=== PATIENT | female | born 1955 | race Caucasian/White ===

== ENCOUNTER 2016-05-05 07:44 | Day surgery (SDC) | payer OTHER ==
[2016-04-28 12:37] VITALS: BMI 18.2
[2016-05-05] MEDS ORDERED: PROPOFOL 20 ML ONE (08:42)
[2016-05-05] MEDS ORDERED: ROPIVACAINE HCL 0.5% 30ML VIAL ONE (09:17)
[2016-05-05] MEDS ORDERED: MIDAZOLAM HCL 2 MG/2 ML SINGLE DOSE VIAL ONE (09:17)
[2016-05-05] MEDS ORDERED: DEXAMETHASONE SOD PHOSPHATE/PF 10 MG/ML SDV ONE (09:17)
[2016-05-05] MEDS ORDERED: BUPIVACAINE HCL/EPINEPHRINE/PF 30 ML VIAL IJ ONE (09:46)
--- NOTE | 2016-05-05 09:49 | HP ---
Admitting History and Physical - Admission History of Present Illness: The patient is a 61 yo female with a history of breast cancer, s/p left lumpectomy with sentinel node biopsy. She comes to the hospital today for left shoulder arthroscopy. She gives no definite date or specific memory of an injury but she has had pain to her left shoulder for >1 year. No numbness or tingling to this upper ext. She has tenderness with abduction of her arm. No CP , fevers, SOB or dysuria. History Source: Patient Limitations to Obtaining History: No Limitations - Past Medical History Cardiovascular: No: Deep Vein Thrombosis, HTN Pulmonary: Yes: Asthma, Pneumonia (last episode in november 2015) Gastrointestinal: No: Cancer, Gastritis, GERD Renal/: No: Renal Failure, Hematuria Heme/Onc: No: Bleeding Disorder Additional Past Medical History: venous stasis b/l - Past Surgical History Past Surgical History: Yes: Breast Biopsy (left breat lumpectomy with sentinel node biopsy for cancer, elective b/l ooporectomy) Additional Past Surgical History: laparoscopic b/l ooporectomy - Smoking History Smoking history: Never smoked Have you smoked in the past 12 months: No - Alcohol/Substance Use Hx Alcohol Use: No Home Medications - Allergies Allergies/Adverse Reactions: Allergies Allergy/AdvReac Type Severity Reaction Status Date / Time doxycycline Allergy Rash Verified 05/05/16 08:30 sulfamethoxazole Allergy Rash Verified 05/05/16 08:30 [From Bactrim] trimethoprim [From Bactrim] Allergy Rash Verified 05/05/16 08:30 - Home Medications Home Medications: Ambulatory Orders NK [No Known Home Medication] 04/28/16 Review of Systems - Review of Systems Constitutional: denies: Chills, Fever Neck: denies: Decreased ROM, Pain on Movement Cardiovascular: denies: Chest Pain, Edema, Palpitations Respiratory: denies: Cough, SOB Gastrointestinal: denies: Abdominal Pain, Nausea Genitourinary: denies: Burning, Dysuria, Hematuria Musculoskeletal: reports: Extremity Pain (left hsoulder). denies: Decreased ROM Neurological: denies: Headache, Numbness, Parasthesia Hematology/Lymphatic: denies: Easily Bruised, Excessive Bleeding Physical Examination Vital Signs: Vital Signs Temperature 97.7 F 05/05/16 08:20 Pulse Rate 59 L 05/05/16 08:20 Respiratory Rate 16 05/05/16 08:20 Blood Pressure 107/60 05/05/16 08:20 O2 Sat by Pulse Oximetry (%) 100 05/05/16 08:29 Constitutional: Yes: Well Nourished, Calm Eyes: Yes: WNL, Conjunctiva Clear HENT: Yes: WNL, Atraumatic, Normocephalic Neck: Yes: WNL, Supple, Trachea Midline Cardiovascular: Yes: WNL, Regular Rate and Rhythm Respiratory: Yes: WNL, Regular, CTA Bilaterally Gastrointestinal: Yes: WNL, Normal Bowel Sounds, Soft Extremities: No: Calf Tenderness, Deformity Edema: No Peripheral Pulses WNL: Yes Peripheral Pulses: Left Doralis Pedis: 2+, Right Dorsalis Pedis: 2+, Left Femoral: 2+, Right Femoral: 2+ Integumentary: Yes: Venous Stasis Changes (b/l) Neurological: Yes: WNL, Alert, Oriented ...Motor Strength: WNL, LUE, LLE, RUE, RLE Psychiatric: Yes: WNL, Alert, Oriented Assessment/Plan A/P: 61 yo old female with partial rotator cuff tear plan for left shoulder arthroscopy today with repair of partial tear DVT ppx with SCD/early ambulation IV abx at [facility]
[2016-05-05] MEDS ORDERED: oxyCODONE HCL 10 MG SUSTAINED ACTING TABLET PO ONE (11:27)
[2016-05-05] MEDS ORDERED: oxyCODONE HCL 5 MG TABLET PO PRN (11:27)
--- NOTE | 2016-05-05 11:31 | OP ---
Operative Note - Note: Operative Date: 05/05/16 Pre-Operative Diagnosis: LEFT SHOULDER RCT/PARTIAL, BURSITIS/TENDINOSIS Operation: RSA DEBRIDEMENT, DECOMPRESSION, REPAIR WITH BIOINDUCTIVE PATCH Post-Operative Diagnosis: Same as Pre-op Surgeon: Cisco Cannon Anesthesia: General Operative Report Dictated: Yes
--- NOTE | 2016-05-05 11:36 | DS ---
Physical Examination Vital Signs: Vital Signs Temperature 97.7 F 05/05/16 08:20 Pulse Rate 59 L 05/05/16 08:20 Respiratory Rate 16 05/05/16 08:20 Blood Pressure 107/60 05/05/16 08:20 O2 Sat by Pulse Oximetry (%) 100 05/05/16 08:29 Discharge Summary Reason For Visit: PARTIAL ROTATOR CUFF TEAR LEFT SHOULDER Condition: Good - Instructions Diet, Activity, Other Instructions: Post Operative Instructions: Shoulder Arthroscopy Dr Cisco Cannon YOUR REGULAR PHARAMCY DID NOT HAVE PAIN MEDICATIONS: WE CALLED YOUR MEDICATION ORDER INTO: [address] 1. Pain following a Shoulder Arthroscopy is variable and can be significant. Some patients will have more pain than others. You have been provided with a prescription for medication that contains a narcotic. You are not allowed to drive while on this medication. Feel free to take medications such as Ibuprofen or Naprosyn in addition to the pain medicine if you do not have any problems with the NSAID class of medications. 2. Apply ice to the shoulder for 15 minutes every hour. You may continue this for as many days as necessary. 3. You may find sleeping on an incline (reclining chair) to be more comfortable for the first few days. 4. You must remain in your sling at all times except when showering. The only exception to this is to allow you to stretch your elbow a few times a day to prevent your hand and forearm from swelling. 5. You are not to use your arm to reach for anything, lift anything or carry anything until instructed otherwise. 6. You may remove the bandages in 48 hours. You may shower at that point. 7. Place band-aids on the sutures after your shower.Do not put any creams or lotions on the incision until after the sutures are removed. 8. Please call the office to schedule a visit to have your sutures removed. 9. If for any reason you believe you may have an infection or are concerned, please feel free to call me. I can be reached through our office number 24 hours a day. 10. Please call our office with any questions; we will review the surgical findings during your post-operative visit. Disposition: HOME - Home Medications Comprehensive Discharge Medication List: Ambulatory Orders NK [No Known Home Medication] 04/28/16
[2016-05-05 13:47] VITALS: TEMP 97.5
[2016-05-05 13:49] VITALS: BP 105/57; PULSE 72
--- NOTE | 2016-05-05 14:02 | SURG ---
Surgery Dump Truck Driver [address] Note Dump Truck Driver Off Highway: Lauren Lorenzana PA-C Date of Service: 05/05/16 Diagnosis: LEFT SHOULDER RCT/PARTIAL, BURSITIS/TENDINOSIS Procedure: RSA DEBRIDEMENT, DECOMPRESSION, REPAIR WITH BIOINDUCTIVE PATCH I was present for the entirety of the operative procedure. For further detail, please refer to operative report. Visit type - Case Type Case Type: Scheduled Admission - Emergency Emergency Visit: No - New patient This patient is new to me today: Yes Date on this admission: 05/05/16 - Critical Care Critical Care patient: No
--- NOTE | 2016-05-09 14:14 | PATH ---
Surgical Pathology Report Patient Name: HELEN CORDON Med. Rec. #: [id number] /Age/Gender: 1955 (Age: 61) / F Account: [id number] Location: [facility] Taken: 05/08/2016 Received: 05/08/2016 Reported: 05/09/2016 Physicians: Cisco Cannon M.D. Specimen(s) Received LEFT SHOULDER SHAVINGS Clinical History Partial rotator cuff tear left shoulder Final Diagnosis SOFT TISSUE, LEFT SHOULDER FROM ARTHROSCOPIC SHAVINGS: SYNOVIUM AND FIBROCARTILAGE WITH MYXOHYALINE DEGENERATION. FRAGMENTS OF UNREMARKABLE SKELETAL MUSCLE. Electronically Signed Amanuel Lu M.D. Gross Description Received in formalin, labeled "left shoulder shavings" is a 1.7 x 1.4 x 0.3 cm aggregate of miles-yellow soft tissue fragments. A sales representative education courses portion is submitted in one cassette. /05/08/201605/08/2016
== END 2016-05-05 12:50 | disposition home or self-care (01) ==
LOC: FASU 07:44
PROVIDERS: ATTEND Orthopaedic Surgery
PROC: 0LU24KZ Supplement Left Shoulder Tendon with Nonautologous Tissue Substitute, Percutaneous Endoscopic Approach (ICD-10-PCS; 2016-05-05)
PROC: 0MN24ZZ Release Left Shoulder Bursa and Ligament, Percutaneous Endoscopic Approach (ICD-10-PCS; 2016-05-05)
PROC: 0RBK4ZZ Excision of Left Shoulder Joint, Percutaneous Endoscopic Approach (ICD-10-PCS; 2016-05-05)
PROC: 0LB24ZZ Excision of Left Shoulder Tendon, Percutaneous Endoscopic Approach (ICD-10-PCS; principal; 2016-05-05 10:48)
DX: M75.122 Complete rotator cuff tear or rupture of left shoulder, not specified as traumatic (principal); M65.812 Other synovitis and tenosynovitis, left shoulder; M77.8 Other enthesopathies, not elsewhere classified; M75.52 Bursitis of left shoulder; M75.02 Adhesive capsulitis of left shoulder
CPT/HCPCS: 88304-TC; 94760